=== PATIENT | female | born 1985 | race Caucasian/White ===

== ENCOUNTER → 2018-04-03 | Outpatient (CLI) | payer BC | LOC: LAB.O 11:34 | PROVIDERS: ATTEND Obstetrics & Gynecology | DX: Z01.419 Encounter for gynecological examination (general) (routine) without abnormal findings (principal); E04.9 Nontoxic goiter, unspecified; N94.9 Unspecified condition associated with female genital organs and menstrual cycle ==

== ENCOUNTER → 2018-04-09 | Outpatient (CLI) | payer BC ==
--- NOTE | 2018-04-09 18:20 | US ---
THYROID ULTRASOUND CLINICAL INFORMATION: Thyroid nodules. Enlarged thyroid gland. No palpable mass. No prior thyroid surgery. TECHNIQUE: Routine transcutaneous scannin-D and Doppler modes. COMPARISON: Pelvic ultrasound on the same visit. FINDINGS: Thyroid size: Right 6.3 x 2.9 x 2.5 cm. Left 6.0 x 2.8 x 2.6 cm. Isthmus 7.4 mm thickness. Texture: Heterogeneous. Estimated total number of nodules >/=1 cm: 4 Number of spongiform nodules >/=2 cm not described below (TR1): 0 Number of mixed cystic and solid nodules >/=1.5 cm not described below (TR2): 0 Nodule #: 1 Maximum size: 2.4 cm; All dimensions 0.9 x 1.0 cm Location: right; lower Composition: solid/almost completely solid (2) Echogenicity: isoechoic (1) Shape: not zzijfs-bdkv-thgh (0) Margins: ill-defined (0) Echogenic foci: none (0) ACR TI-RADS total points: 3. ACR TI-RADS risk category: TR3 (3 points) ACR TI-RADS recommendation: Follow-up ultrasound in 1 year Nodule #: 2 Maximum size: 1.1 cm; All dimensions 1.1 x 1.0 cm Location: left; lower Composition: solid/almost completely solid (2) Echogenicity: hyperechoic (1) Shape: not qmodwk-zsdm-ytpd (0) Margins: smooth (0) Echogenic foci: macrocalcifications (1) ACR TI-RADS total points: 4. ACR TI-RADS risk category: TR4 (4-6 points) ACR TI-RADS recommendation: Follow-up ultrasound in 1 year Nodule #: 3 Maximum size: 1.7 cm; All dimensions 1.4 x 0.9 cm Location: left; mid Composition: solid/almost completely solid (2) Echogenicity: hypoechoic (2) Shape: not diycqe-efpt-hvii (0) Margins: smooth (0) Echogenic foci: none (0) ACR TI-RADS total points: 4. ACR TI-RADS risk category: TR4 (4-6 points) ACR TI-RADS recommendation: Ultrasound-guided fine needle aspiration Nodule #: 4 Maximum size: 1.4 cm; All dimensions 1.1 x 0.7 cm Location: isthmus; mid Composition: solid/almost completely solid (2) Echogenicity: hypoechoic (2) Shape: not plsxhb-cwwt-wubv (0) Margins: smooth (0) Echogenic foci: none (0) ACR TI-RADS total points: 4. ACR TI-RADS risk category: TR4 (4-6 points) ACR TI-RADS recommendation: Follow-up ultrasound in 1 year Soft tissue around the thyroid gland shows no distinct solid mass or cyst. No large calcifications or parenchymal edema. No overlying skin changes. No abnormal vascularity. IMPRESSION: 1. Hypoechoic solid nodule (#3) in the left mid lobe with ACR TI-RADS risk category TR 4. Due to greatest diameter 1.7 cm, ultrasound-guided fine-needle aspiration sampling is recommended. Please see below.* 2. Hypoechoic solid nodule (#4) in the isthmus. ACR TI RADS risk category TR 4. Due to greatest diameter greater than 1 cm, ultrasound follow-up in one year is recommended. 3. Hyperechoic solid nodule (#2) in the left lower lobe, with microcalcification. ACR TI RADS risk category TR 4. Due to greatest diameter 1 cm, ultrasound follow-up in one year is recommended. 4. Isoechoic solid nodule (#1) in the right lower lobe. ACR TI RADS risk category TR 3. Due to greatest diameter 1.5 to 2.4 cm, ultrasound follow-up in one year is recommended. 5. Soft tissue surrounding the thyroid gland is unremarkable. *ACR TI-RADS recommendations: TR5 (>/=7 points) - FNA if >/=1 cm, follow-up if 0.5 - 0.9 cm every year for 5 years TR4 (4-6 points) - FNA if >/=1.5 cm, follow-up if 1 - 1.4 cm in 1, 2, 3 and 5 years TR3 (3 points) - FNA if >/=2.5 cm, follow -up if 1.5 - 2.4 cm in 1, 3 and 5 years TR2 (2 points) and TR1 (0 points) - No FNA or follow-up * ACR TI-RADS recommends that no more than two nodules with the highest ACR TI-RADS total point should be biopsied and no more than four nodules should be followed. Electronically signed by: Prem Swain MD 04/09/2018 6:18 PM CDT
--- NOTE | 2018-04-09 18:25 | US ---
EXAM DESCRIPTION: Pelvic,Non-OB: Ultrasound. CLINICAL HISTORY: ZOI.419 N94.9 COMPARISON: Ultrasound of the thyroid on the same visit. TECHNIQUE: Transcutaneous scanning through the urine filled bladder. Endovaginal scanning. Jones-scale and Doppler modes. FINDINGS: Uterus 7.3 x 2.9 x 1.8 cm. Endometrial thickness 4.2 mm. The myometrium appears heterogeneous. 8.1 x 9.6 x 6.5 cm solid mass hypoechoic projecting off the right aspect of the uterine capsule. The uterus orientation is difficult to visualize. Cervix unremarkable. Cul-de-sac contains minimal fluid. Right ovary 2.5 x 2.6 x 2.0 cm. Normal Vascularity Doppler. 1.8 x 1.5 x 1.1 cm follicle, no cysts. No adnexal mass or free fluid. Left ovary not well seen. cm. No adnexal mass or free fluid. IMPRESSION: 1. Large fibroid or mass projecting off of the right capsule of the uterus. Not contiguous with the endometrial cavity which is normal thickness. Minimal fluid in the cul-de-sac. Consider follow-up MRI of the pelvis without and with gadolinium IV contrast. 2. Right ovary with 1.8 cm follicle. No adnexal mass or fluid. Left ovary obscured. Electronically signed by: Prem Swain MD 04/09/2018 6:24 PM CDT
== END ==
LOC: US 10:37
PROVIDERS: ATTEND Obstetrics & Gynecology
DX: Z01.419 Encounter for gynecological examination (general) (routine) without abnormal findings (principal); E04.9 Nontoxic goiter, unspecified; N94.9 Unspecified condition associated with female genital organs and menstrual cycle; D25.9 Leiomyoma of uterus, unspecified

== ENCOUNTER 2019-10-23 10:31 | Emergency (ER) | payer BC, OTHER ==
--- NOTE | 2019-10-23 11:36 | ED.PDOC ---
History of Present Illness - General Chief Complaint: ENT Problem Stated Complaint: Sore throat Time Seen by Provider: 10/23/19 10:42 - History of Present Illness Initial Comments: c/o having sore throat and cough x3-4 days , no fever or chills , Timing/Duration: gradual Improving Factors: nothing Worsening Factors: nothing Allergies/Adverse Reactions: Allergies Penicillins Allergy (Verified 10/23/19 10:49) Rash Dextromethorphan [From Mucinex DM] Adverse Reaction (Verified 10/23/19 10:49) Other Causes an increase in mucus prodution Guaifenesin [From Mucinex DM] Adverse Reaction (Verified 10/23/19 10:49) Other Causes an increase in mucus prodution Yellow Dye [From Mucinex DM] Adverse Reaction (Verified 10/23/19 10:49) Other Causes an increase in mucus prodution Review of Systems - Review of Systems Constitutional: States: no symptoms reported EENTM: States: see HPI Respiratory: States: no symptoms reported Cardiology: States: no symptoms reported Gastrointestinal/Abdominal: States: no symptoms reported Genitourinary: States: no symptoms reported Musculoskeletal: States: no symptoms reported Skin: States: no symptoms reported Neurological: States: no symptoms reported Endocrine: States: no symptoms reported Hematologic/Lymphatic: States: no symptoms reported Past Medical History (General) - Patient Medical History Hx Stroke: No Hx Cardiac Disorders: Yes - Hypercholesterolemia Hx Congestive Heart Failure: No Hx Hypertension: Yes Hx Thyroid Disease: Yes Hx Diabetes: No Hx Gastroesophageal Reflux: Yes - Vaccination History Hx Influenza Vaccination: No Hx Pneumococcal Vaccination: No - Social History Hx Tobacco Use: Yes Hx Alcohol Use: No Hx Substance Use: No Family Medical History - Family History Mother Family History: No Known Living Status: Still Living Hx Family;Other: Father - COPD, DM, HTN Physical Exam - Physical Exam General Appearance: Alert, Comfortable Eye Exam: bilateral normal Ear Exam: bilateral ear: auricle normal, TM normal Nasal Exam: normal inspection Throat Exam: normal mouth inspection, other - erythematous pharyngeal wall Cardiovascular/Respiratory: regular rate, rhythm, no M/R/G, no JVD, normal breath sounds, no respiratory distress Neurologic: no motor/sensory deficits, alert, normal mood/affect, oriented x 3 Skin Exam: normal color Progress - Results/Orders Results/Orders: 10/23/19 11:04 STREP A SCREEN CULTURE Stat Laboratory Results Group A Strep Rapid Negative (NEGATIVE) 10/23/19 11:04 Departure - Departure Clinical Impression: Pharyngitis Time of Disposition: 11:37 Disposition: Discharge to Home or Self Care Condition: Good Departure Forms: ED Discharge - Pt. Copy, Patient Portal Self Enrollment Diet: resume usual diet Activity: increase activity as tolerated Referrals: Reji Argueta MD [Primary Care Provider] - 1-2 Weeks Additional Instructions: Follow up PCP in 1-2 days
[2019-10-23 11:50] VITALS: BP 149/107; TEMP 96.6; O2SAT 99
== END 2019-10-23 11:50 | disposition home or self-care (01) ==
LOC: ER 10:31
DX: J02.9 Acute pharyngitis, unspecified (principal); E78.00 Pure hypercholesterolemia, unspecified; I10 Essential (primary) hypertension; E07.9 Disorder of thyroid, unspecified; K21.9 Gastro-esophageal reflux disease without esophagitis; Z87.891 Personal history of nicotine dependence; Z88.0 Allergy status to penicillin; Z88.8 Allergy status to other drugs, medicaments and biological substances